=== PATIENT | male | born 1980 | race African-American/Black ===

== ENCOUNTER 2022-10-11 12:45 | Emergency (ER) | payer OTHER ==
[~2022-10-11] VITALS: Ht 162.6 cm; Wt 67.6 kg
[2022-10-11 13:03] VITALS: TEMP 98.2
[2022-10-11 14:51] VITALS: BP 124/70
== END 2022-10-11 14:51 | disposition home or self-care (01) ==
LOC: ED 12:45
PROC: 08C1XZZ Extirpation of Matter from Left Eye, External Approach (ICD-10-PCS; principal; 2022-10-11)
DX: T15.82XA Foreign body in other and multiple parts of external eye, left eye, initial encounter (principal); X58.XXXA Exposure to other specified factors, initial encounter; Y92.89 Other specified places as the place of occurrence of the external cause
CPT/HCPCS: 99283